=== PATIENT | female | born 1970 | race African-American/Black ===

== ENCOUNTER 2020-10-03 22:09 | Inpatient (IN) | payer MEDICARE, OTHER ==
[~2020-10-03] VITALS: Ht 162.6 cm; Wt 80.7 kg
--- NOTE | 2020-10-03 22:25 | NUR ---
ED Nurse Note: Recieved pt BREEZY from home-care facility with c/o severe neck and back pain, pt has hx of MS and recieved injections today for pain in upper neck area, pt c/o severe headache which she states she had prior to procedure, rated at 10/10 with photophobia, pt denies cp, sob, or any other complaints.
[2020-10-03] MEDS ORDERED: Morphine Sulfate 4mg/ml Inj (IV USE ONLY) IVP ONE (22:30)
[2020-10-03] MEDS ORDERED: Solu-MEDROL 125mg Inj IVP ONE (22:30)
[2020-10-03] MEDS ORDERED: methylPREDNISolone Sod Succ 1,000 MG in NS 275 ML IVPB ONE ×2 (22:45→23:15)
[2020-10-03 22:49] LABS: BASOPHILS % (AUTO) 0.7 % (0.0-2.0); EOSINOPHILS % (AUTO) 0.7 % (0.0-3.0); HEMATOCRIT 43.2 % (37.0-47.0); HEMOGLOBIN 14.2 G/DL (12.0-16.0); LYMPHOCYTES % (AUTO) 47.8 % (20.0-45.0); MEAN CORPUSCULAR VOLUME 106 FL (80-99); MONOCYTES % (AUTO) 6.1 % (1.0-10.0); NEUTROPHILS % (AUTO) 44.8 % (45.0-75.0); PLATELET COUNT 231 K/UL (150-450); RED BLOOD COUNT 4.09 M/UL (4.20-5.40); RED CELL DISTRIBUTION WIDTH 12.5 % (11.6-14.8); WHITE BLOOD COUNT 13.7 K/UL (4.8-10.8)
[2020-10-03 23:05] LABS: ANION GAP 8 mmol/L (5-15); BLOOD UREA NITROGEN 10 mg/dL (7-18); CALCIUM 8.9 MG/DL (8.5-10.1); CARBON DIOXIDE 28 MMOL/L (21-32); CHLORIDE 107 MMOL/L (98-107); CREATININE 1.1 MG/DL (0.55-1.30); POTASSIUM 2.8 MMOL/L (3.5-5.1); SODIUM 143 MMOL/L (136-145)
[2020-10-03 23:09] LABS: ALANINE AMINOTRANSFERASE 70 U/L (12-78); ALBUMIN 3.6 G/DL (3.4-5.0); ALKALINE PHOSPHATASE 104 U/L (46-116); ASPARTATE AMINO TRANSFERASE 42 U/L (15-37); BILIRUBIN,TOTAL 0.3 MG/DL (0.2-1.0); CREATINE KINASE 334 U/L (26-308)
[2020-10-03] MEDS ORDERED: Hydromorphone 0.5mg/0.5ml inj IVP ONE (23:45)
[2020-10-03] MEDS ORDERED: HYDROcodone/Acetamin 5/325 tab ORAL PRN (23:45)
[2020-10-03] MEDS ORDERED: Gadavist 7.5mMol/7.5ml vial IV PRN (23:45)
--- NOTE | 2020-10-04 00:15 | NUR ---
ED Nurse Note: Pt in bed resting quietly, meds given effective, pt IV site patent, comleted meds ordered, tolerated well, pt ambulated to bathroom, steady gait, no cp or sob or acute changes, pt is to be admitted, will cotinue to monitor and perpae for admission.
[2020-10-04 00:30] VITALS: BP 154/88
--- NOTE | 2020-10-04 00:34 | Emergency Room Report ---
History of Present Illness General Chief Complaint: Headache Source: Patient Present Illness HPI 50-year-old female with past medical history of multiple sclerosis presents with multiple complaints. She states that she feels like she is having one of her MS exacerbations. She complains of holocephalic headache that has been ongoing for the past 3 days. Her last MS exacerbation was 3 years ago and similar to this. She states that her right eye is hurting her and the light is bothering her. She has a neurologist (Dr. Mildred Elizondo) has been managing her neurologic condition. Her fiber machine tender (Dr Rios) saw her today and did injections into her cervi xiomara and upper thoracic spine to help with her pain but this just exacerbated her headache. Her headache was not sudden onset or associated with trauma. She has no associated upper extremity or lower extremity weakness, slurred speech, aphasia, difficulty walking, chest pain, abdominal pain, melena, hematochezia, dysuria, hematuria or any other issues. The patient's symptoms were gradual onset, severity was moderate, duration since 3 days. Quality: Throbbing Past medical history: Multiple sclerosis, hypertension Past surgical history: Total abdominal hysterectomy, appendectomy, cervical spine surgery Smoking: Denies Alcohol use: Denies Drug use: Denies Review of systems: CONST: No fevers or chills, No night sweats PULMONARY: No productive cough, No shortness of breath CARDIAC: No chest pain, No palpitations GI: No vomiting, No diarrhea , No melena_or_BRBPR : No dysuria, No hematuria, No discharge NEURO: No new_focal_weakness_or_numbness, No confusion, No vision changes 14 point Review of Systems is otherwise negative except per HPI Physical Exam: GENERAL: Awake_alert_ nontoxic, no acute distress Spo2 98% on RA -normal EYES: Extraocular muscles are intact. Conjunctivae clear. Lids without swelling. No nystagmus. PERRLA ENT: External nose and ear normal_in_appearance. Oropharynx clear. Head_atraumatic, Moist_oral_mucosa NECK: No JVD. No meningismus. No thyromegaly. Supple. Trachea midline RESP: Normal respiratory effort. Symmetric rise. No stridor. Clear_to_auscultation_No_rales_No_wheezes CARDIAC: Regular rate and regular rhytm. No_significant pedal edema. ABDOMEN: Soft. Nondistended. Nontender_No_rebound_or_guarding. MSK: Normal muscle tone, without rigidity. Extremities without asymmetric deformity or swelling. SKIN: Warm and dry. No visible cyanosis or pallor NEUROLOGIC: Alert, oriented x3. Motor_and_sensation_grossly_intact. No truncal ataxia. Psych: Normal mood and affect, normal judgment and insight - COORDINATION OF CARE Case was discussed with: Patient , Patient's Physician Any labs and imaging that were ordered were interpreted as part of the medical decision making: Medical Decision Making/Plan: Differential diagnosis: Multiple sclerosis exacerbation versus tension headache versus cluster headache, doubt CVA/TIA Patient is neurologically intact and afebrile. She has normal motor strength in the bilateral upper and lower extremities. No nuchal rigidity. Patient has a well-established history of multiple sclerosis with last MS exacerbation 3 years ago. Patient states that it is similar to this 1. She is having right eye pain and bitemporal headache. Labs are unremarkable. Mild potassium noted. Will require repletion. ED intervention included pain control and IV fluids with relief of symptoms. Also received Solu-Medrol 1 g for MS exacerbation I [facility] and reviewed the patients presentati on, workup, results, and treatment. They will admit the patient for further care and evaluation, and assume care of the patient at this time. Allergies: Coded Allergies: No Known Allergies (Unverified , 10/03/20) COVID-19 Screening Contact w/high risk pt: No Experienced COVID-19 symptoms?: No COVID-19 Testing performed SAFETY ADMINISTRATOR: No Nursing Documentation-PMH Hx Hypertension: Yes History Of Psychiatric Problem: Yes Physical Exam Vital Signs Date Time Temp Pulse Resp B/P (MAP) Pulse Ox O2 Delivery O2 Flow Rate FiO2 10/03/20 21:59 98.8 71 16 160/85 (110) 98 Room Air Sp02 EP Interpretation: reviewed, normal Medical Decision Making Diagnostic Impression: Primary Impression: Multiple sclerosis Additional Impressions: Multiple sclerosis exacerbation Headache EKG Diagnostic Results Troponin ordered: Yes When was troponin ordered?: Oct 04, 2020 EKG Time: 00:30 EP Interpretation: Normal Rate: normal Rhythm: NSR ST Segments: no acute changes ASA given to the pt in ED: No - No ACS PA Scribe Text 12-lead EKG (interpreted by me) Time: 2229 Indication: Rhythm analysis Tracing visualized and Interpreted by me. Rhythm: Normal sinus rhythm Rate: 72 bpm QTc: 440 Morphology: No_significant_ST_elevations_or_depressions, No STEMI Impression: Normal_sinus_rhythm_without_significant_abnormality Rhythm Strip Diag. Results Rhythm Strip Time: 00:30 EP Interpretation: yes Rate: 72 Rhythm: NSR Reevaluation Time: 00:31 Last Vital Signs Date Time Temp Pulse Resp B/P (MAP) Pulse Ox O2 Delivery O2 Flow Rate FiO2 10/03/20 23:06 98.7 10/03/20 21:59 71 16 160/85 (110) 98 Room Air Status: improved Disposition: ADMITTED INPATIENT Admit Decision Time: 12:00 Condition: Stable Referrals: NON PHYSICIAN (PCP) Desiree Carter D.O. Oct 04, 2020 00:34
--- NOTE | 2020-10-04 00:35 | NUR ---
ED Nurse Note: Placed call to admitting unit, report given to MILDRED Hammond on unit, pt resting quietly, waiting for ordered meds to be completed then will send to floor unit, pt aware of admission, belongings list completed and med rec done.
[2020-10-04] MEDS ORDERED: Solu-MEDROL 125mg Inj IVPB SCH (00:45)
[2020-10-04] MEDS ORDERED: methylPREDNISolone Sod Succ 1,000 MG in NS 275 ML IVPB ONE (01:00)
[2020-10-04] MEDS ORDERED: Solu-MEDROL 125mg Inj IVPB ONE (01:00)
[2020-10-04 01:01] LABS: APPEARANCE,URINE CLEAR; BILIRUBIN, URINE NEGATIVE (NEGATIVE); COLOR,URINE PALE YELLOW; GLUCOSE, URINE (UA) NEGATIVE (NEGATIVE); KETONES,URINE NEGATIVE (NEGATIVE); LEUKOCYTE ESTERASE ,URINE NEGATIVE (NEGATIVE); NITRITE,URINE NEGATIVE (NEGATIVE); PH,URINE 5 (4.5-8.0); PROTEIN,URINE NEGATIVE (NEGATIVE); UROBILINOGEN,URINE NORMAL MG/DL (0.0-1.0)
[2020-10-04] MEDS ORDERED: PAMELOR10 MG ORAL (01:06)
[2020-10-04] MEDS ORDERED: AZATHIOPRINE5 GM MC (01:06)
[2020-10-04] MEDS ORDERED: DOCUSATE SODIU100 M2 ORAL (01:06)
[2020-10-04] MEDS ORDERED: HYDROCHLOROTHIA25 MG ORAL (01:06)
[2020-10-04] MEDS ORDERED: METOPROLOL SUC100 MG ORAL (01:06)
[2020-10-04] MEDS ORDERED: PREDNISONE2.5 MG ORAL (01:06)
[2020-10-04] MEDS ORDERED: BACLOFEN10 MG ORAL (01:06)
[2020-10-04] MEDS ORDERED: OMEPRAZOLE20 M2 ORAL (01:06)
[2020-10-04] MEDS ORDERED: TRAMADOL HCL100 M2 ORAL (01:06)
[2020-10-04] MEDS ORDERED: HYDROXYCHLOROQ200 M1 PO (01:06)
[2020-10-04] MEDS ORDERED: ASPIRIN EC81 MG ORAL (01:06)
[2020-10-04] MEDS ORDERED: ATORVASTATIN CA40 MG ORAL (01:06)
[2020-10-04] MEDS ORDERED: ISOSORBIDE DINI20 M2 PO (01:06)
[2020-10-04] MEDS ORDERED: HYDROCODON-ACE1 EA15 ORAL (01:06)
--- NOTE | 2020-10-04 03:00 | NUR ---
NURSE NOTES: Received patient from ED on [facility] accompanied by a staff, alert and oriented x4. With complained of 9/10 headache. Skin assessment done. With old scar per patient she had hysterectomy a long time ago. IV access on the right AC. Per patient she stays in a hotel sponsored by the government but was homeless before. SHe needs assistance when ambulating. Bedside commode provided. Belongings checked and patient wanted to keep valuables at bedside. Instructed to use call light for assistance. Bed in lowest, lock engaged and alarm on. Will monitor.
[2020-10-04 04:00] VITALS: BP 117/71
--- NOTE | 2020-10-04 06:49 | NUR ---
NURSE HAND-OFF: Important Events on Shift: admission, pain mgt Patient Status: Diet: regular Pending Orders: Pending Results/Labs: Pending MD notification: Latest Vital Signs: Temperature 97.4 , Pulse 82 , B/P 117 /71 , Respiratory Rate 18 , O2 SAT 98 , Room Air, O2 Flow Rate . Vital Sign Comment: Latest Sharp Fall Score: 35 Fall Risk: Medium Risk Safety Measures: Call light Within Reach, Bed Alarm , Side Rails Side Rails x2, Bed position Low and Locked. Fall Precautions: Yellow Socks Door Sign Patient Fall Education
[2020-10-04] MEDS: Morphine Sulfate 2mg/ml Inj(IV/IM USE ONLY) IVP PRN ×2 (07:23→17:43)
--- NOTE | 2020-10-04 07:24 | NUR ---
HAND-OFF: Report given to MILDRED Cook.
[2020-10-04 07:28] LABS: HEMATOCRIT 40.7 % (37.0-47.0); HEMOGLOBIN 13.7 G/DL (12.0-16.0); MEAN CORPUSCULAR VOLUME 104 FL (80-99); PLATELET COUNT 228 K/UL (150-450); RED BLOOD COUNT 3.92 M/UL (4.20-5.40); RED CELL DISTRIBUTION WIDTH 12.9 % (11.6-14.8); WHITE BLOOD COUNT 9.2 K/UL (4.8-10.8)
--- NOTE | 2020-10-04 07:39 | NUR ---
NURSE NOTES: Received patient from MILDRED Byrne. Patient awake in bed, alert and oriented x 4, no SOB, bed in lowest position with breaks engaged and alarm on, pt was given Morphine 2 mg IV for head/neck pain 07/26, IV line patent and intact, on room air, noted with good appetite, will continue to monitor and proceed with plan of care, call light within reach.
[2020-10-04 07:48] LABS: ALANINE AMINOTRANSFERASE 77 U/L (12-78); ALBUMIN 3.6 G/DL (3.4-5.0); ALKALINE PHOSPHATASE 115 U/L (46-116); ANION GAP 12 mmol/L (5-15); ASPARTATE AMINO TRANSFERASE 53 U/L (15-37); BILIRUBIN,TOTAL 0.4 MG/DL (0.2-1.0); BLOOD UREA NITROGEN 11 mg/dL (7-18); CALCIUM 8.7 MG/DL (8.5-10.1); CARBON DIOXIDE 23 MMOL/L (21-32); CHLORIDE 110 MMOL/L (98-107); CREATININE 1.1 MG/DL (0.55-1.30); POTASSIUM 3.1 MMOL/L (3.5-5.1); SODIUM 145 MMOL/L (136-145)
[2020-10-04 08:00] VITALS: BP 151/107
[2020-10-04] MEDS: Heparin 5000 units/ml inj SUBQ SCH ×2 (08:06→20:17)
[2020-10-04] MEDS: hydroCHLOROthiazide 25mg cap ORAL SCH (10:47)
[2020-10-04] MEDS: Aspirin EC 81mg tab ORAL SCH (10:47)
[2020-10-04] MEDS: Metoprolol Succinate XL 100mg tab ORAL SCH (10:48)
[2020-10-04] MEDS: HYDROcodone/Acetamin 5/325 tab ORAL PRN ×2 (10:48→20:06)
[2020-10-04 12:00] VITALS: BP 142/89
--- NOTE | 2020-10-04 13:00 | NUR ---
INCLUSION MANAGER NOTE Pt presents as A&O 4x. PT has been staying in a hotel sponsored by the [employer] for two weeks. Pt was homeless living in her car prior to her current placement. PT receives SSI $990/mo, self payee. PT denies having substance abuse issue. UDS all negative. PT reports she is ambulatory but reports hx of fall 3x in the past 6 months. Pt reports she should be able to return to the hotel till October 30, 2020. PT shares she has hx of mental illness, but does not receive outpatient mental health services. Pt declined to provide the detail of her mental health issue. PT declined to receive mental health resource/also declined this SW to schedule the OP MH appt for her. PT evaluation recommended. Emergency contact: Mandeep Castorena (son) [phone] SW spoke w/ Sandra from [facility] ([facility] [id number])[phone], that it is likely that she can return. Discharge date needs to be determined in order for them to confirm pt's return. F/U needed.
--- NOTE | 2020-10-04 13:09 | NUR ---
DISCHARGE PLANNING [facility] [id number])[phone], that it is likely that she can return. Discharge date needs to be determined in order for them to confirm pt's return. F/U needed. Addendum: 10/04/20 at 1337 by ELPIDIO MARTINEZ Spoke w/ pt's case repairer GABBY Perdomo paperwork to be faxed to [phone] (ATTN:Leanne from [facility]) and call the [facility] nursing room #[id number] , RN to RN report preferred. Recuperative Care through [facility].
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
[2020-10-04] MEDS ORDERED: Enalaprilat 2.5mg/2ml Inj IV PRN (15:30)
[2020-10-04 16:00] VITALS: BP 147/76
--- NOTE | 2020-10-04 17:43 | General Progress Note ---
Advance Care Planning Advance Care Planning Advance Care Planning [facility] An independent Hospitalist group, where every patient is our [facility] Internal Medicine Hospitalist Advanced Care Planning Note Please contact us at Date of Discussion: A [id number] discussion with the patient regarding the patient's advanced care planning took place during this hospitalization on the above date. The discussion included the explanation and discussion of advance directives and associated forms/documents, as well as the patient's current code status. We also discussed at length the patient's medical conditions (both acute and chroni c), general prognosis, treatment options, and goals of care. The following summarizes the discussion: Advance Care Planning/Goals of Care: - Will attempt to fill out an AD and/or POLST with the patient prior to discharge, if not already completed - Continue current evaluation and management of any acute and chronic medical issues - Will continue to support the patient/family - Will continue to discuss both short- and long-term goals of care DPOA-HC/Surrogate Decision Maker: None currently appointed Code Status: Full Code Advanced Care Planning Forms/Documents Completed: Deferred until later encounter/visit A total of 18 minutes was spent on this discussion, including counseling, answering questions, and completing, if any, pertinent advanced care planning forms/documents. Time of note may not reflect time of encounter. Marcus Lawson D.O Oct 04, 2020 17:43
--- NOTE | 2020-10-04 19:18 | NUR ---
NURSE HAND-OFF: Important Events on Shift:[pain management, safety and comfort, monitoring VS, MRI with contrast] Patient Status: [stable] Diet: [regular] Pending Orders: [] Pending Results/Labs:[] Pending MD notification:[] Latest Vital Signs: Temperature 97.9 , Pulse 82 , B/P 147 /76 , Respiratory Rate 18 , O2 SAT 97 , Room Air, O2 Flow Rate . Vital Sign Comment: [] Latest Sharp Fall Score: 35 Fall Risk: Medium Risk Safety Measures: Call light Within Reach, Bed Alarm , Side Rails Side Rails x2, Bed position Low and Locked. Fall Precautions: Yellow Socks Door Sign Patient Fall Education Report given to [MILDRED Byrne].
--- NOTE | 2020-10-04 19:34 | NUR ---
NURSE NOTES: Patient awake in bed, asking for pain medicine. Will medicate as ordered. Call light and needs in reach. Bed in lowest and lock engaged. Will continue plan of care.
[2020-10-04 20:00] VITALS: BP 144/96
[2020-10-04] MEDS ORDERED: Atorvastatin 80mg tab ORAL SCH (21:00)
[2020-10-04] MEDS ORDERED: methylPREDNISolone Sod Succ 1,000 MG in NS 275 ML IVPB SCH (22:00)
[2020-10-05] VITALS: BP 149/92
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
[2020-10-05 04:00] VITALS: BP 142/85
[2020-10-05] MEDS: Morphine Sulfate 2mg/ml Inj(IV/IM USE ONLY) IVP PRN ×2 (04:14)
--- NOTE | 2020-10-05 06:17 | NUR ---
NURSE HAND-OFF: Important Events on Shift: pain mgt Patient Status: Diet: regular Pending Orders: am labs Pending Results/Labs: mri brain result done 10/04 Pending MD notification: Latest Vital Signs: Temperature 97.3 , Pulse 64 , B/P 142 /85 , Respiratory Rate 18 , O2 SAT 97 , Room Air, O2 Flow Rate . Vital Sign Comment: Latest Sharp Fall Score: 35 Fall Risk: Medium Risk Safety Measures: Call light Within Reach, Bed Alarm , Side Rails Side Rails x2, Bed position Low and Locked. Fall Precautions: Yellow Socks Door Sign Patient Fall Education
[2020-10-05 07:12] LABS: CALCIUM 9.2 MG/DL (8.5-10.1); CREATININE 1.2 MG/DL (0.55-1.30)
--- NOTE | 2020-10-05 07:14 | NUR ---
HAND-OFF: Report given to MILDRED Ziegler.
[2020-10-05 08:00] VITALS: BP 133/80
[2020-10-05 09:00] VITALS: BP 133/80
[2020-10-05] MEDS: Aspirin EC 81mg tab ORAL SCH (09:00)
[2020-10-05] MEDS: Heparin 5000 units/ml inj SUBQ SCH (09:00)
[2020-10-05] MEDS: Metoprolol Succinate XL 100mg tab ORAL SCH (09:00)
[2020-10-05] MEDS: hydroCHLOROthiazide 25mg cap ORAL SCH (09:00)
--- NOTE | 2020-10-05 09:29 | NUR ---
CHARGE NURSE NOTE: Pt is ready to be discharged, dressed up, ready to go, does not want to take her morning meds. No discharge order. Spoke with , he is discharging patient, but he is waiting for MRI brain result. patient notified.
--- NOTE | 2020-10-05 10:02 | Diagnostic Imaging Report ---
EXAM: MRI MRI Brain w/wo Contrast HISTORY: History of multiple sclerosis. Headache x3 days. Right eye pain and photophobia. COMPARISON: No prior studies available for comparison. TECHNIQUE: MR scan of the brain includes sagittal T1, axial T1, T2, FLAIR, diffusion-weighted and gradient sequences. Postcontrast coronal and axial T1 images were obtained with fat suppression after administration of gadolinium. FINDINGS: On FLAIR sequence, there are multiple scattered small foci of white matter hyperintensities noted in the subcortical and periventricular white matter. The distribution and configuration of the foci could be consistent with but not pathognomonic for multiple sclerosis. One of the foci toward the left frontal vertex demonstrates minimal restricted diffusion noted. No ADC map abnormality noted. There is no acute infarct, hemorrhage, mass effect or shift. Ventricles and cisterns as well as brain stem and posterior fossa appear unremarkable. The sella and parasellar regions unremarkable. Normal flow voids identified in the carotid siphons. Sinuses appear unremarkable. There is some fluid in the right mastoid air cells. No abnormal enhancement noted after contrast administration. IMPRESSION: MULTIPLE SMALL SCATTERED FOCI OF WHITE MATTER HYPERINTENSITIES. THE APPEARANCE AND DISTRIBUTION IS NOT PATHOGNOMONIC FOR MULTIPLE SCLEROSIS AND FINDING IS INDETERMINATE FOR MULTIPLE SCLEROSIS VERSUS SCATTERED WHITE MATTER MICROANGIOPATHY CHANGES. NO ACUTE INFARCT, HEMORRHAGE, MASS EFFECT OR SHIFT. SMALL AMOUNT OF FLUID IN THE RIGHT MASTOID AIR CELLS.
[2020-10-05] MEDS ORDERED: GABAPENTIN100 MG ORAL (10:03)
--- NOTE | 2020-10-05 10:04 | Discharge Instructions ---
Discharge Instructions Discharge Instructions Diet: other - low salt Resume Normal Activity?: Yes Activity: resume normal activities Follow Up Orders with PCP in 1-[address] Ramon in 2-3 weeks For Congestive Heart Failure Reminder Report to your physician any weight gain of 5 pounds or more in one week. Marcus Lawson D.O Oct 05, 2020 10:04
--- NOTE | 2020-10-05 10:55 | NUR ---
MEDICAL RECORDS ANALYST NOTE Confirmed w/ Pooja from [facility] that pt is welcome to return. MICHELLE faxed the DC packet to [phone] Addendum: 10/05/20 at 1102 by ELPIDIO MARTINEZ MT address: [facility] [address] [address]
--- NOTE | 2020-10-05 11:04 | Discharge Summary ---
Discharge Summary Hospital Course Date of Admission Oct 03, 2020 at 23:03 Date of Discharge Admitting Diagnosis MULTIPLE SCLEROSIS EXACERBATION HPI Rosi Castorena is a 50 year old female who was admitted on Oct 03, 2020 at 23:03 for Multiple Sclerosis Exacerbation General Appearance: no apparent distress, alert, alert oriented x3 HEENT: normocephalic, atraumatic Neck: normal alignment, supple Respiratory/Chest: lungs clear, normal breath sounds, no respiratory distress Cardiovascular/Chest: normal rate, regular rhythm, no JVD Abdomen: normal bowel sounds, non tender, soft Extremities: normal range of motion, non-tender Skin Exam: normal pigmentation Neurologic: java developer II-XII grossly normal, alert, oriented x 3 Musculoskeletal: normal muscle bulk Hospital Course Mrs. Castorena is a 68-year-old female past medical history of sarcoidosis, MS knee presenting for worsening headaches and possible MS exacerbation. Patient was started on Solu-Medrol for possible MS exacerbation by overnight attending. Patient noted to have elevated blood pressures into the 230s at home and by EMS during the time of her severe headaches. Blood pressure was controlled in the hospital along with improvement of her headaches. She denies any neurofocal deficits: No vision changes, no motor/sensory deficits, no ataxia, no bowel or bladder incontinence. I discussed the case with her chapter relations administrator at [facility] Dr. Elizondo who agreed that this was likely a hypertension emergency rather than MS exacerbation. Dr. Najera neurologist also has reviewed the case and deemed unlikely MS exacerbation. MRI was done which showed white matter changes not conclusive of MS but rather possibly white matter microangiopathy. Patient otherwise remained hemodynamically stable with no respiratory compromise. She felt much better this morning with no new complaints. She is medically stable for safe discharge home. She has been cleared by neurology as well. Patient to follow-up with her primary care in 1 to [address] Smith on November 06. A copy of the MRI was given to her to take with her to her neurologist. A: #Hypertensive emergencysystolic blood pressure in the 230s on EMS and at home #? Multiple sclerosis exacerbationunlikely at this time #History of multiple sclerosis #History of sarcoidosis #Rheumatoid arthritis #Fibromyalgia #Congestive heart failure P: Status post Solu-Medrol for 2 days, was DC'd is unlikely acute MS exacerbation We will continue gabapentin 1 to milligrams twice daily per neurology Headaches resolved MRI nonconclusive of MS lesions possible white matter microangiopathy Follow-up with your primary care physician in 1 to 2 weeks Patient will follow up with her neurologist Dr. Smith at [facility] November 06, and will bring a copy of the MRI results completed here today Time spent on this encounter was 47 minutes which included 34 minutes of counseling and care coordination. I discussed with the nurse at bedside. Time of note may not reflect time patient was seen. Discharge Discharge Vital Signs Last Vital Signs Date Time Temp Pulse Resp B/P (MAP) Pulse Ox O2 Delivery O2 Flow Rate FiO2 10/05/20 09:00 Room Air 10/05/20 09:00 64 133/80 10/05/20 08:00 98.2 10/05/20 04:00 18 97 Discharge Disposition Patient was discharged to Discharge Instructions Discharge Instructions Activity: resume normal activities Marcus Lawson D.O Oct 05, 2020 11:04
--- NOTE | 2020-10-05 11:07 | NUR ---
NURSE NOTES: Pt is discharged to [facility] in stable condition by [facility]. Pt was instructed on medication regimen, activity, diet. Pt will follow up with neurologist and PCP. IV removed- no infection or hematoma noted. Belongings checked. Spoke with Shereen ([phone]), notified her that pt is coming back and she is welcoming pt.
--- NOTE | 2020-10-05 16:36 | Cardiology Report ---
APPROVED REPORT EKG Measurement Heart [id number] <Conclusion> Normal sinus rhythm Normal ECG
== END 2020-10-05 11:15 | disposition home or self-care (01) | DRG 305 ==
LOC: EDBD 22:09 → EMR 22:54 → 4E 23:03 → EDBEDREQ 23:15
DX: I16.1 Hypertensive emergency (principal); G35 Multiple sclerosis; R51.9 Headache, unspecified; M06.9 Rheumatoid arthritis, unspecified; M79.7 Fibromyalgia; I11.0 Hypertensive heart disease with heart failure; I50.9 Heart failure, unspecified; M10.9 Gout, unspecified
CPT/HCPCS: 36415; 70553; 80048; 80053; 80307; 81003; 81025; 82550; 83690; 83735; 84484; 85007; 85025; 85610; 85730; 87081; 93005; 96361; 96374; 96375; 99285; A9585; J2405; J7030; J8499